=== PATIENT | male | born 1965 | race Caucasian/White ===

== ENCOUNTER 2019-02-27 18:44 | Emergency (ER) | payer SELFPAY ==
--- NOTE | 2019-02-27 20:44 | ED ---
Skin Complaint - HPI Summary HPI Summary: Patient with history of recent IV Suboxone use in left forearm complains of left hand swelling 2 days. Denies fever, cough, sore throat, CP, SOB, N/C/D, abdominal pain, change in urine, change in BM. - History of Current Complaint Chief Complaint: EDExtremityUpper Time Seen by Provider: 02/27/19 20:37 Stated Complaint: INJURED HAND,SWOLLEN PER PT Hx Obtained From: Patient Onset/Duration: Started Days Ago Skin Exposure Onset/Duration: Days Ago Timing: Constant Onset Severity: Moderate Current Severity: Severe Pain Intensity: 9 Pain Scale Used: 0-10 Numeric Skin Location: Discrete, Hand Aggravating Symptom(s): Nothing Alleviating Symptom(s): Nothing Associated Signs & Symptoms: Negative - Allergy/Home Medications Allergies/Adverse Reactions: Allergies Allergy/AdvReac Type Severity Reaction Status Date / Time MS Amoxicillin [Amoxicillin] Allergy Mild Rash Verified 05/22/13 13:12 MS Sulfa Drugs [Sulfa Drugs] AdvReac Intermediate Nausea Verified 05/22/13 13:12 PMH/Surg Hx/FS Hx/Imm Hx Endocrine/Hematology History: Denies: Hx Anticoagulant Therapy Cardiovascular History: Denies: Hx Pacemaker/ICD History: Denies: Hx Dialysis Sensory History: Denies: Hx Legally Blind Opthamlomology History: Denies: Hx Eye Prosthesis EENT History: Denies: Hx Deafness Neurological History: Denies: Hx Dementia Psychiatric History: Reports: Hx of Violent Episodes Against Others Denies: Hx Eating Disorder Infectious Disease History: No Infectious Disease History: Denies: Traveled Outside the [place] in Last 30 Days - Family History Known Family History: Positive: Non-Contributory - Social History Alcohol Use: None Substance Use Type: Reports: None Substance Use Comment - Amount & Last Used: former Smoking Status (MU): Never Smoked Tobacco Review of Systems Constitutional: Negative Eyes: Negative ENT: Negative Cardiovascular: Negative Respiratory: Negative Gastrointestinal: Negative Genitourinary: Negative Musculoskeletal: Negative Skin: Other Neurological: Negative Psychological: Normal All Other Systems Reviewed And Are Negative: Yes Physical Exam - Summary Physical Exam Summary: Swelling to left hand. No extra warmth, ecchymosis, erythema, apical abscess noted. Area of likely IV drug use site on medial distal left forearm nonerythematous nonpurulent, no extra warmth. PMS intact distally. Full range of motion of elbow. Forearm soft nontender. Triage Information Reviewed: Yes Vital Signs On Initial Exam: Initial Vitals Temp Pulse Resp BP Pulse Ox 99.3 F 83 18 156/93 99 02/27/19 18:50 02/27/19 18:50 02/27/19 18:50 02/27/19 18:50 02/27/19 18:50 Vital Signs Reviewed: Yes Appearance: Positive: Well-Appearing Skin: Positive: Warm Head/Face: Positive: Normal Head/Face Inspection Eyes: Positive: Normal Neck: Positive: Supple Respiratory/Lung Sounds: Positive: Clear to Auscultation Cardiovascular: Positive: Normal Abdomen Description: Positive: Nontender Musculoskeletal: Positive: Normal Neurological: Positive: Normal Psychiatric: Positive: Normal AVPU Assessment: Alert - Cyndy Coma Scale Best Eye Response: 4 - Spontaneous Best Motor Response: 6 - Obeys Commands Best Verbal Response: 5 - Oriented Coma Scale Total: 15 Diagnostics - Vital Signs Vital Signs Temp Pulse Resp BP Pulse Ox 02/27/19 18:50 99.3 F 83 18 156/93 99 - Laboratory Result Diagrams: 02/28/19 00:08 02/28/19 00:08 Lab Statement: Any lab studies that have been ordered have been reviewed, and results considered in the medical decision making process. Course/Dx - Course Course Of Treatment: Patient with history of recent IV Suboxone use in left forearm complains of left hand swelling 2 days. Denies fever, cough, sore throat, CP, SOB, N/C/D, abdominal pain, change in urine, change in BM. Vital signs within normal limits. Labs unremarkable. Ultrasound of left upper extremity positive for possible nonocclusive 5 x 2 mm isoechoic filling defect adherent to the anterior wall of the left internal jugular vein. Otherwise negative. Patient signed out AMA after being warned of possibility risk of stroke, endocarditis. Patient patient has history of endocarditis, is familiar with the risks, states he will return in the morning for reevaluation. - Diagnoses Provider Diagnoses: Swelling of hand, Thrombosis of left internal jugular vein Discharge - Sign-Out/Discharge Documenting (check all that apply): Patient Departure Patient Received Moderate/Deep Sedation with Procedure: No - Discharge Plan Condition: Fair Disposition: AGAINST MEDICAL ADVICE Referrals: No Primary Care Phys,NOPCP [Primary Care Provider] - Additional Instructions: Return to the ED for any worsening symptoms. - Billing Disposition and Condition Condition: FAIR Disposition: Against Medical Advice
[2019-02-28 00:23] LABS: ABS Eosinophils 0.1 10^3/ul (0-0.6); ABS Lymphocytes 2.4 10^3/ul (1.0-4.8); ABS Monocytes 0.5 10^3/ul (0-0.8); ABS Neutrophils 3.2 10^3/ul (1.5-7.7); Hematocrit 40 % (42-52); Hemoglobin 13.4 g/dL (14.0-18.0); Lymphocyte % 38.6 %; Mean Corpuscular HGB Conc 34 g/dL (31-36); Mean Corpuscular Hemoglobin 29 pg (27-31); Mean Corpuscular Volume 88 fL (80-94); Mean Platelet Volume 7.8 fL (7.4-10.4); Nucleated Red Blood Cells % 0.1; Platelet Count 252 10^3/uL (150-450); Red Blood Count 4.59 10^6 /uL (4.18-5.48); Red Cell Distribution Width 13 % (10-15); White Blood Count 6.3 10^3/uL (3.5-10.8)
[2019-02-28 00:33] LABS: INR 1.07 (0.82-1.09)
[2019-02-28 00:41] LABS: Albumin 4.7 g/dL (3.2-5.2); Albumin/Globulin Ratio 1.5 (1-3); BUN/Creatinine Ratio 18.7 (8-20); C Reactive Protein 6.86 mg/L (<8.01); Calcium 9.8 mg/dL (8.6-10.3); EGFR African American 87.5 (>60); EGFR Non-African American 72.3 (>60); Globulin 3.2 g/dL (2-4); Total Bilirubin 0.6 mg/dL (0.2-1.0); Total Protein 7.9 g/dL (6.4-8.9)
[2019-02-28] MEDS ORDERED: DOXYcycline CAP(*) 100 MG PO ONE (00:55)
[2019-02-28 01:05] VITALS: BP 144/76
== END 2019-02-28 01:04 | disposition left against medical advice (07) ==
LOC: ED 18:44
DX: M79.89 Other specified soft tissue disorders (principal); I82.C12 Acute embolism and thrombosis of left internal jugular vein; Z88.0 Allergy status to penicillin; Z88.2 Allergy status to sulfonamides
CPT/HCPCS: 36415; 80053; 83605; 85025; 85610; 86140; 87040; 93005; 99283

== ENCOUNTER 2023-10-31 16:10 | Inpatient (IN) ==
[2023-10-31] MEDS: Lactated Ringers 1000 ml BAG 1,000 ML IV SCH ×3 (16:25→23:25)
[2023-10-31] MEDS ORDERED: Adenosine 3 MG/ML 2 ml VIAL (6 mg) ONE (16:35)
[2023-10-31] MEDS ORDERED: fentaNYL 100 mcg/2 ml 50 MCG/ML VIAL ONE (16:51)
[2023-10-31] MEDS: fentaNYL 100 mcg/2 ml 50 MCG/ML VIAL IV SLOW PU ONE ×2 (16:54→17:04)
[2023-10-31] MEDS: Adenosine 3 MG/ML 2 ml VIAL (6 mg) IV PUSH ONE ×2 (17:21→17:23)
[2023-10-31 17:37] LABS: ABS Lymphocytes 0.4 10^3/uL (1.0-4.8); ABS Monocytes 0.7 10^3/uL (0.0-1.1); ABS Neutrophils 6.6 10^3/uL (1.5-7.6); Hematocrit 30.8 % (38-53); Hemoglobin 10.5 g/dL (13.2-16.3); Lymphocyte % 4.9 %; Mean Corpuscular Hemoglobin 28.1 pg (27-33); Mean Corpuscular Volume 82.9 fL (80-97); Mean Platelet Volume 8.4 fL (7.5-11.2); Platelet Count 363 10^3/uL (150-450); Red Blood Count 3.72 10^6/uL (4.06-5.63); Red Cell Distribution Width 14.9 % (12-17); White Blood Count 7.7 10^3/uL (3.6-10.2)
[2023-10-31] MEDS: Cefepime 1 GM in Dextrose 1 GM/50 ML BAG IV ONE (17:50)
[2023-10-31 17:51] LABS: Activated Partial Thrombo Time 28.8 seconds (26.0-38.0); INR 1.52 (0.83-1.13)
[2023-10-31 17:58] LABS: Urine Appearance Clear; Urine Bilirubin Negative (Negative); Urine Blood Trace (Negative); Urine Color Yellow; Urine Glucose Negative (Negative); Urine Ketones Negative (Negative); Urine Nitrite Negative (Negative); Urine Protein Trace (Negative); Urine Specific Gravity 1.024 (1.002-1.030); Urine Urobilinogen 2+ (Negative); Urine pH 5.5 (5.0-8.0)
[2023-10-31 18:06] LABS: Urine Benzodiazepine Screen None Detected (None Detect); Urine Cannabinoids Screen None Detected (None Detect); Urine Opiates Screen None Detected (None Detect)
[2023-10-31] MEDS: Vancomycin 1,000 MG in NS 0.9% 250 ml 250 ML IVPB ONE (18:13)
[2023-10-31] MEDS ORDERED: Norepinephrine 4 MG/250mL D5W 4,000 MCG/250 ML BAG IV ONE (18:20)
[2023-10-31] MEDS: Hydrocortisone INJ 100 MG/2ML 2 ML VIAL IV ONE (18:37)
[2023-10-31 18:42] LABS: Albumin/Globulin Ratio 0.9 (1-3); C Reactive Protein 188.58 mg/L (<8.01); Calcium 7.2 mg/dL (8.6-10.3); Creatinine, Serum 0.95 mg/dL (0.67-1.17); Globulin 2.2 g/dL (2-4); Magnesium 1.4 mg/dL (1.9-2.7); Potassium 4.8 mmol/L (3.5-5.0); Total Bilirubin 0.9 mg/dL (0.2-1.0); Total Protein 4.2 g/dL (6.4-8.9); eGFR CKD-EPI 92.8 (>60)
[2023-10-31 18:49] LABS: Urine Buprenorphine Screen None Detected (None Detect); Urine Fentanyl Screen Presumptive Positive (None Detect); Urine Hydrocodone Screen None Detected (None Detect)
[2023-10-31] MEDS: Norepinephrine 4 MG/250mL D5W 4,000 MCG/250 ML BAG IV SCH (19:04)
[2023-10-31] MEDS: Norepinephrine 4 MG/250mL NS 4,000 MCG/250 ML BAG IV SCH (19:12)
[2023-10-31 19:18] LABS: High Sensitivity Troponin 1 Hr 9 pg/mL (<20)
[2023-10-31] MEDS: Magnesium Sulfate 2 gm BAG 2 GM/50 ML BAG IVPB ONE ×2 (19:56→20:52)
[2023-10-31] MEDS: Acetaminophen IV 1 GM/100ML 1,000 MG/100 ML BAG IV ONE (19:57)
[2023-10-31 20:04] LABS: Phosphorus 3.1 mg/dL (2.5-5.0)
[2023-10-31] MEDS: Digoxin IV 0.5 MG/2 ML AMP (0.25 MG/ML) IV SLOW PU ONE (20:10)
[2023-10-31] MEDS: Iodixanol (CONTRAST) 320 MG/ML 100 ML SDV IV ONE (20:11)
[2023-10-31] MEDS ORDERED: PHENYLEPHRINE DRIP IVPREMIX 50 MG/250 ML BAG IV SCH (22:00)
[2023-10-31] MEDS ORDERED: Vancomycin per Pharmacy 1 EA NOTE FOLLOW UP SCH (22:00)
[2023-10-31] MEDS ORDERED: Heparin DRIP 25,000 UNITS BAG 25,000 UNITS/250 ML BAG IV SCH (22:00)
[2023-10-31] MEDS: Phenylephrine DRIP 0.2 MG/ML in NS 0.9% 250 ML (PHA mix) IV SCH (22:56)
[2023-10-31 23:02] LABS: Hematocrit 31.6 % (38-53); Hemoglobin 10.8 g/dL (13.2-16.3); Mean Corpuscular Hemoglobin 28.1 pg (27-33); Mean Corpuscular Hgb Conc 34.1 g/dL (31-36); Mean Corpuscular Volume 82.6 fL (80-97); Mean Platelet Volume 8.3 fL (7.5-11.2); Platelet Count 392 10^3/uL (150-450); Red Blood Count 3.83 10^6/uL (4.06-5.63); Red Cell Distribution Width 15.1 % (12-17); White Blood Count 9.6 10^3/uL (3.6-10.2)
[2023-10-31 23:46] LABS: Creatinine, Serum 0.91 mg/dL (0.67-1.17); eGFR CKD-EPI 97.7 (>60)
[2023-10-31] MEDS: Heparin DRIP 25,000 UNITS BAG 25,000 UNITS/250 ML BAG IV SCH (23:54)
[2023-11-01 00:18] LABS: PCO2 Arterial 31 mmHg (35-45)
[2023-11-01 00:27] LABS: PO2 Arterial 53 mmHg (80-100)
[2023-11-01 00:38] LABS: ABS Lymphocytes 0.5 10^3/uL (1.0-4.8); ABS Monocytes 0.8 10^3/uL (0.0-1.1); ABS Neutrophils 8.3 10^3/uL (1.5-7.6); ABS Nucleated RBC 0.01 10^3/ul; Anisocytosis 1+; Burr Cells 2+; Eosinophil % 0.1 %; Lymphocyte % 5.1 %; Nucleated Red Blood Cells % 0.1 %/100WBC (0.0-0.8)
[2023-11-01] MEDS: Digoxin IV 0.5 MG/2 ML AMP (0.25 MG/ML) IV SLOW PU ONE ×2 (02:28→08:53)
[2023-11-01 05:29] LABS: Hematocrit 34.2 % (38-53); Hemoglobin 11.5 g/dL (13.2-16.3); Mean Corpuscular Hgb Conc 33.7 g/dL (31-36); Mean Platelet Volume 8.6 fL (7.5-11.2); Platelet Count 426 10^3/uL (150-450); Red Blood Count 4.12 10^6/uL (4.06-5.63); Red Cell Distribution Width 15.1 % (12-17); White Blood Count 9.3 10^3/uL (3.6-10.2)
[2023-11-01] MEDS: Cefepime 2 GM in Dextrose 2 GM/50 ML BAG IV SCH ×2 (06:00→11:49)
[2023-11-01 06:08] LABS: ABS Lymphocytes 0.6 10^3/uL (1.0-4.8); ABS Monocytes 0.7 10^3/uL (0.0-1.1); ABS Neutrophils 7.9 10^3/uL (1.5-7.6); ABS Nucleated RBC 0.01 10^3/ul; Eosinophil % 0.2 %; Lymphocyte % 6.5 %; Nucleated Red Blood Cells % 0.1 %/100WBC (0.0-0.8)
[2023-11-01] MEDS: Heparin 5000 UNITS/ML 1 mL VIAL IV SCH (06:14)
[2023-11-01] MEDS: Vancomycin 1,250 MG in NS 0.9% 250 ml 250 ML IVPB SCH (06:17)
[2023-11-01 06:22] LABS: C Reactive Protein 195.35 mg/L (<8.01); Calcium 7.6 mg/dL (8.6-10.3); Creatinine, Serum 0.87 mg/dL (0.67-1.17); Magnesium 2.2 mg/dL (1.9-2.7); Potassium 4.8 mmol/L (3.5-5.0)
[2023-11-01] MEDS: Buprenorp/Nalox 8-2 MG FILM SL SCH (08:54)
[2023-11-01] MEDS ORDERED: Rocuronium 50 mg VIAL 10 mg/ml 5 ml VIAL (50 mg) ONE (09:54)
[2023-11-01] MEDS ORDERED: Etomidate 40 mg/20 ml (2 MG/ML) 20 ml VIAL (40 mg) ONE (09:54)
[2023-11-01] MEDS: Rocuronium 50 mg VIAL 10 mg/ml 5 ml VIAL (50 mg) ONE (09:55)
[2023-11-01] MEDS: Propofol 10 mg/ml 100 ML BTL 1,000 MG/100 ML BTL IV SCH (09:57)
[2023-11-01] MEDS: Succinylcholine 200 mg VIAL 20 mg/ml 10 ml VIAL (200 mg) ONE (10:10)
[2023-11-01] MEDS: Amiodarone 150 mg IVPREMIX 150 MG/100 ML BAG IV ONE (11:09)
[2023-11-01] MEDS: Propofol 10 mg/ml 100 ML BTL 1,000 MG/100 ML BTL ONE (11:19)
[2023-11-01] MEDS: Amiodarone 360 MG IVPREMIX 360 MG/200 ML BAG IV SCH (11:26)
[2023-11-01] MEDS: fentaNYL INFUSION 50 mcg/mL VL 2,500 MCG/50 ML VIAL IV SCH (11:34)
[2023-11-01] MEDS ORDERED: Enoxaparin 40 MG/0.4 ML SYR SUBCUT SCH (14:00)
[2023-11-01] MEDS: Lactated Ringers 1000 ml BAG 1,000 ML IV ONE (14:57)
[2023-11-01] MEDS: Chlorhexidine MOUTHWASH 0.12% 15 ML UDC TOPICAL SCH (15:31)
[2023-11-01] MEDS: Albumin Human 5% 12.5 GM/250 ML BTL IV ONE (16:13)
[2023-11-01] MEDS ORDERED: Amiodarone 360 MG IVPREMIX 360 MG/200 ML BAG IV SCH (17:05)
[2023-11-02 06:04] LABS: Creatinine, Serum 1.34 mg/dL (0.67-1.17); Vancomycin Trough 16.7 mcg/mL; eGFR CKD-EPI 61.4 (>60)
[2023-11-02] MEDS: Vancomycin Trough Check NOTE FOLLOW UP ONE (06:13)
[2023-11-02 06:59] LABS: Calcium 7.2 mg/dL (8.6-10.3); Magnesium 1.9 mg/dL (1.9-2.7); Potassium 4.8 mmol/L (3.5-5.0)
[2023-11-02 08:26] LABS: Hematocrit 28.2 % (38-53); Hemoglobin 9.5 g/dL (13.2-16.3); Mean Corpuscular Hemoglobin 28.1 pg (27-33); Mean Corpuscular Hgb Conc 33.5 g/dL (31-36); Mean Corpuscular Volume 83.9 fL (80-97); Mean Platelet Volume 9.3 fL (7.5-11.2); Platelet Count 398 10^3/uL (150-450); Red Blood Count 3.37 10^6/uL (4.06-5.63); Red Cell Distribution Width 15.5 % (12-17); White Blood Count 9.7 10^3/uL (3.6-10.2)
[2023-11-02] MEDS: Buprenorp/Nalox 8-2 MG FILM SL SCH (08:28)
[2023-11-02 08:56] LABS: ABS Lymphocytes 0.8 10^3/uL (1.0-4.8); ABS Monocytes 0.3 10^3/uL (0.0-1.1); ABS Neutrophils 8.5 10^3/uL (1.5-7.6); ABS Nucleated RBC 0.02 10^3/ul; Eosinophil % 0.4 %; Lymphocyte % 8.2 %; Nucleated Red Blood Cells % 0.2 %/100WBC (0.0-0.8); RBC Morphology Normal (Normal)
[2023-11-02] MEDS: Pantoprazole VIAL 40 MG VIAL IV SCH (09:41)
[2023-11-02 14:24] LABS: HIV 4th Generation Nonreactive (Nonreactive)
[2023-11-02] MEDS: Enoxaparin 80 MG/0.8 ML SYR SUBCUT SCH (19:42)
[2023-11-03 04:20] LABS: Hematocrit 29.5 % (38-53); Hemoglobin 9.6 g/dL (13.2-16.3); Mean Corpuscular Hemoglobin 27.6 pg (27-33); Mean Corpuscular Hgb Conc 32.7 g/dL (31-36); Mean Corpuscular Volume 84.2 fL (80-97); Mean Platelet Volume 8.4 fL (7.5-11.2); Platelet Count 461 10^3/uL (150-450); Red Cell Distribution Width 15.7 % (12-17)
[2023-11-03 04:43] LABS: Albumin 1.9 g/dL (3.2-5.2); Albumin/Globulin Ratio 0.7 (1-3); Calcium 7.1 mg/dL (8.6-10.3); Creatinine, Serum 0.91 mg/dL (0.67-1.17); Globulin 2.7 g/dL (2-4); Phosphorus 3.5 mg/dL (2.5-5.0); Potassium 4.9 mmol/L (3.5-5.0); Total Bilirubin 0.5 mg/dL (0.2-1.0); Total Protein 4.6 g/dL (6.4-8.9); Vancomycin Trough 18.5 mcg/mL; eGFR CKD-EPI 97.7 (>60)
[2023-11-03 04:59] LABS: ABS Eosinophils 0.1 10^3/uL (0.0-0.5); ABS Lymphocytes 0.9 10^3/uL (1.0-4.8); ABS Monocytes 0.9 10^3/uL (0.0-1.1); ABS Neutrophils 10.2 10^3/uL (1.5-7.6); ABS Nucleated RBC 0.02 10^3/ul; Anisocytosis 1+; Eosinophil % 0.5 %; Lymphocyte % 7.3 %; Nucleated Red Blood Cells % 0.1 %/100WBC (0.0-0.8)
[2023-11-03] MEDS: Vancomycin Trough Check NOTE FOLLOW UP ONE (05:09)
[2023-11-03] MEDS: Midazolam 5 mg/5 ml VIAL 1 mg/ml 5 ml VIAL (5 mg) IV SLOW PU PRN (06:14)
[2023-11-03] MEDS: .Amiodarone 24HR ONLY IV Protocol Order Note IV ONE (10:36)
[2023-11-04 01:08] LABS: Hepatitis B Surface Antigen Nonreactive (Nonreactive)
[2023-11-04 01:13] LABS: Hepatitis B Core IgM Nonreactive (Nonreactive)
[2023-11-04 01:25] LABS: Hepatitis B Surface Ab Not Immune (Immune)
[2023-11-04 01:26] LABS: Hepatitis C Antibody Reactive (Negative)
[2023-11-04 05:16] LABS: Hematocrit 28.4 % (38-53); Hemoglobin 9.3 g/dL (13.2-16.3); Mean Corpuscular Hemoglobin 27.7 pg (27-33); Mean Corpuscular Hgb Conc 32.7 g/dL (31-36); Mean Corpuscular Volume 84.8 fL (80-97); Mean Platelet Volume 8.3 fL (7.5-11.2); Platelet Count 527 10^3/uL (150-450); Red Blood Count 3.35 10^6/uL (4.06-5.63); White Blood Count 10.8 10^3/uL (3.6-10.2)
[2023-11-04 05:59] LABS: ABS Eosinophils 0.1 10^3/uL (0.0-0.5); ABS Monocytes 0.9 10^3/uL (0.0-1.1); ABS Neutrophils 8.7 10^3/uL (1.5-7.6); ABS Nucleated RBC 0.02 10^3/ul; Anisocytosis 1+; Eosinophil % 1.2 %; Lymphocyte % 9.5 %; Nucleated Red Blood Cells % 0.2 %/100WBC (0.0-0.8)
[2023-11-04 06:06] LABS: Calcium 7.4 mg/dL (8.6-10.3); Creatinine, Serum 0.72 mg/dL (0.67-1.17); Magnesium 1.9 mg/dL (1.9-2.7); Phosphorus 2.8 mg/dL (2.5-5.0); eGFR CKD-EPI 105.9 (>60)
[2023-11-04 06:17] VITALS: BP 99/58
[2023-11-04] MEDS ORDERED: Vancomycin per Pharmacy 1 EA NOTE FOLLOW UP SCH (15:00)
[2023-11-04] MEDS: Acetylcysteine ORAL SOL 200 mg/ml 30 ml VIAL SCH (19:01)
[2023-11-04] MEDS: Acetylcysteine ORAL SOL 200 mg/ml 30 ml VIAL INH SCH ×2 (19:17→19:31)
[2023-11-04] MEDS: Phenylephrine IV 50 MG in NS 0.9% 250 ml 245 ML IV SCH (19:17)
[2023-11-05 04:10] LABS: Hematocrit 27.3 % (38-53); Platelet Count 486 10^3/uL (150-450); Red Blood Count 3.21 10^6/uL (4.06-5.63); Red Cell Distribution Width 15.6 % (12-17); White Blood Count 10.1 10^3/uL (3.6-10.2)
[2023-11-05 05:03] LABS: Albumin 1.8 g/dL (3.2-5.2); Albumin/Globulin Ratio 0.6 (1-3); Calcium 7.1 mg/dL (8.6-10.3); Creatinine, Serum 0.66 mg/dL (0.67-1.17); Magnesium 1.7 mg/dL (1.9-2.7); Phosphorus 2.1 mg/dL (2.5-5.0); Potassium 4.7 mmol/L (3.5-5.0); Total Bilirubin 0.3 mg/dL (0.2-1.0); Total Protein 4.8 g/dL (6.4-8.9); eGFR CKD-EPI 108.7 (>60)
[2023-11-05] MEDS: Magnesium Sulfate 2 gm BAG 2 GM/50 ML BAG IVPB ONE (06:48)
[2023-11-05 07:04] LABS: ABS Eosinophils 0.2 10^3/uL (0.0-0.5); ABS Lymphocytes 0.9 10^3/uL (1.0-4.8); ABS Neutrophils 8.1 10^3/uL (1.5-7.6); ABS Nucleated RBC 0.03 10^3/ul; Eosinophil % 1.6 %; Nucleated Red Blood Cells % 0.3 %/100WBC (0.0-0.8); Toxic Granulation 2+
[2023-11-05] MEDS: Lactulose 30 ml UDC NG TUBE PRN (23:58)
[2023-11-06 05:00] LABS: Hematocrit 25.9 % (38-53); Hemoglobin 8.5 g/dL (13.2-16.3); Mean Corpuscular Hemoglobin 27.9 pg (27-33); Mean Corpuscular Hgb Conc 32.9 g/dL (31-36); Mean Corpuscular Volume 84.6 fL (80-97); Platelet Count 477 10^3/uL (150-450); Red Blood Count 3.06 10^6/uL (4.06-5.63); Red Cell Distribution Width 15.7 % (12-17); White Blood Count 12.4 10^3/uL (3.6-10.2)
[2023-11-06 05:52] LABS: Albumin 1.8 g/dL (3.2-5.2); Albumin/Globulin Ratio 0.6 (1-3); Calcium 6.9 mg/dL (8.6-10.3); Creatinine, Serum 0.61 mg/dL (0.67-1.17); Globulin 3.2 g/dL (2-4); Magnesium 1.7 mg/dL (1.9-2.7); Phosphorus 2.8 mg/dL (2.5-5.0); Potassium 4.8 mmol/L (3.5-5.0); Total Bilirubin 0.3 mg/dL (0.2-1.0); Vancomycin Trough 15.1 mcg/mL; eGFR CKD-EPI 111.3 (>60)
[2023-11-06] MEDS: Vancomycin Trough Check NOTE FOLLOW UP ONE (05:57)
[2023-11-06 07:20] LABS: ABS Eosinophils 0.1 10^3/uL (0.0-0.5); ABS Neutrophils 10.2 10^3/uL (1.5-7.6); ABS Nucleated RBC 0.05 10^3/ul; Nucleated Red Blood Cells % 0.4 %/100WBC (0.0-0.8); RBC Morphology Normal (Normal); Smudge Cells Present
[2023-11-06] MEDS: Magnesium Sulf 4 GM/100 ML IV 4,000 MG/100 ML BAG IVPB ONE (08:46)
[2023-11-06] MEDS: Morphine 10 MG/ML VIAL (1 ml) IV SCH (09:47)
[2023-11-06] MEDS: Midazolam 10 mg/10 ml VIAL 1 mg/ml 10 ml VIAL (10 mg) IV SLOW PU SCH (09:47)
[2023-11-06] MEDS: Morphine 10 MG/ML VIAL (1 ml) IV ONE ×2 (10:09→12:07)
[2023-11-06] MEDS ORDERED: Morphine PCA LOW DOSE 1 MG/ML 30 ML SYRINGE PCA SCH (12:00)
[2023-11-06] MEDS: Morphine PCA ADULT 5 MG/ML 30 ML PCA SCH (12:28)
[2023-11-06] MEDS: Morphine 10 MG/ML VIAL (1 ml) ONE (13:02)
[2023-11-10] MEDS ORDERED: Vancomycin Trough Check NOTE FOLLOW UP ONE (06:00)
== END 2023-11-06 13:00 | disposition expired | DRG 710 ==
LOC: ED 16:10 → EDHOLD 21:12 → ICU 21:54
PROVIDERS: ADMIT Hospitalist; ATTEND Internal Medicine Critical Care Medicine